=== PATIENT | male | born 1995 | race Two or more races ===

== ENCOUNTER 2017-01-14 09:22 | Emergency (ER) | payer OTHER ==
[~2017-01-14] VITALS: Ht 180.3 cm; Wt 78.9 kg
[2017-01-14] MEDS ORDERED: NKM (09:30)
[2017-01-14 09:37] VITALS: BP 115/90
[2017-01-14 10:08] LABS: EOSINOPHILS % (AUTO) 2.8 % (0.0-3.0); LYMPHOCYTES % (AUTO) 27.7 % (20.0-45.0); MEAN CORPUSCULAR HEMOGLOBIN 30.8 PG (27.0-31.0); MEAN CORPUSCULAR HGB CONC 33.1 G/DL (32.0-36.0); MEAN CORPUSCULAR VOLUME 93 FL (80-99); MEAN PLATELET VOLUME 8.3 FL (6.5-10.1); MONOCYTES % (AUTO) 5.9 % (1.0-10.0); NEUTROPHILS % (AUTO) 62.5 % (45.0-75.0); PLATELET COUNT 150 K/UL (150-450); RED BLOOD COUNT 5.24 M/UL (4.70-6.10); RED CELL DISTRIBUTION WIDTH 11.8 % (11.6-14.8); WHITE BLOOD COUNT 6.5 K/UL (4.8-10.8)
[2017-01-14 10:22] LABS: TROPONIN I < 0.30 ng/mL (<=0.30)
[2017-01-14 10:23] LABS: ALANINE AMINOTRANSFERASE 15 U/L (3-41); ALBUMIN/GLOBULIN RATIO 1.8 (1.0-2.7); ANION GAP 12 (5-15); ASPARTATE AMINO TRANSFERASE 18 U/L (5-40); CALCIUM 9.7 mg/dL (8.6-10.2); CARBON DIOXIDE 27 mEQ/L (20-30); CHLORIDE 101 mEQ/L (98-107); CREATININE 0.7 mg/dL (0.7-1.2); GLOMERULAR FILTRATION RATE > 60 mL/min (>60); HEMOLYSIS 7; POTASSIUM 4.1 mEQ/L (3.4-4.9); SODIUM 140 mEQ/L (135-145); TOTAL PROTEIN 7.3 g/dL (6.6-8.7)
[2017-01-14] MEDS ORDERED: PRILOSEC10 M1 ORAL (10:25)
[2017-01-14 10:35] VITALS: BP 115/80
--- NOTE | 2017-01-14 12:41 | Diagnostic Imaging Report ---
Indication: Chest pain Technique: One view of the chest Comparison: none Findings: Lungs and pleural spaces are clear. Heart size is normal. Impression: No acute process
--- NOTE | 2017-01-16 07:17 | Emergency Room Report ---
History of Present Illness General Chief Complaint: Chest Pain Source: Patient Present Illness HPI Patient is a 21-year-old male who presented after increased chest pain. Patient denies past medical history. He states that he began having some painful sensation to the upper portion of his chest. He denied any fever or cough. Patient reported having some nausea. The pain was unchanged by deep breath. He was improved with supine position. Patient denies any leg pain or swelling. He denies any recent trauma Allergies: Coded Allergies: No Known Allergies (Unverified , 01/14/17) Patient History Past Medical History: see triage record Reviewed Nursing Documentation: PMH: Agreed, PSxH: Agreed Nursing Documentation-PMH Past Medical History: No Stated History Review of Systems All Other Systems: negative except mentioned in HPI Physical Exam Vital Signs Date Time Temp Pulse Resp B/P (MAP) Pulse Ox O2 Delivery O2 Flow Rate FiO2 01/14/17 09:26 98.4 78 16 132/76 97 Room Air 01/14/17 09:37 100 Sp02 EP Interpretation: reviewed, normal General Appearance: normal inspection, well appearing, no apparent distress, alert, GCS 15, non-toxic Head: atraumatic ENT: normal ENT inspection, hearing grossly normal, normal voice Neck: normal inspection, full range of motion, supple, no bony tend Respiratory: normal inspection, lungs clear, normal breath sounds, no respiratory distress, no retraction, no wheezing Cardiovascular #1: regular rate, rhythm, no edema Gastrointestinal: normal inspection, normal bowel sounds, non tender, soft, no guarding, no hernia Genitourinary: no CVA tenderness Musculoskeletal: normal inspection, back normal, normal range of motion Neurologic: normal inspection, alert, responsive, speech normal Psychiatric: normal inspection, judgement/insight normal, mood/affect normal Skin: normal inspection, normal color, no rash Medical Decision Making Diagnostic Impression: Primary Impression: Nonspecific chest pain ER Course Patient presented for chest pain. Differential diagnosis included but was not limited to acute coronary syndrome, pulmonary embolism, pneumonia, aortic dissection, shingles, pneumothorax, aortic dissection, esophageal rupture, pericarditis. Because of complexity of patient's case laboratory testing and imaging studies were ordered. EKG interpreted by me showed normal sinus rhythm without acute ST or QT changes. Patient was advised to take ibuprofen. Chest x -ray one view interpreted by me showed normal cardiac size without evident lung infiltrate. The patient did not show any evidence of pericardial effusion on bedside ultrasound . The patient is advised to follow up with primary care doctor in 1-2 days. Patient is advised to return if any worsening condition or if any changes in status that are concerning. Labs Test 01/14/17 09:50 White Blood Count 6.5 K/UL (4.8-10.8) Red Blood Count 5.24 M/UL (4.70-6.10) Hemoglobin 16.1 G/DL (14.2-18.0) Hematocrit 48.7 % (42.0-52.0) Mean Corpuscular Volume 93 FL (80-99) Mean Corpuscular Hemoglobin 30.8 PG (27.0-31.0) Mean Corpuscular Hemoglobin Concent 33.1 G/DL (32.0-36.0) Red Cell Distribution Width 11.8 % (11.6-14.8) Platelet Count 150 K/UL (150-450) Mean Platelet Volume 8.3 FL (6.5-10.1) Neutrophils (%) (Auto) 62.5 % (45.0-75.0) Lymphocytes (%) (Auto) 27.7 % (20.0-45.0) Monocytes (%) (Auto) 5.9 % (1.0-10.0) Eosinophils (%) (Auto) 2.8 % (0.0-3.0) Basophils (%) (Auto) 1.0 % (0.0-2.0) D-Dimer 166 ng/mL (<500) Sodium Level 140 mEQ/L (135-145) Potassium Level 4.1 mEQ/L (3.4-4.9) Chloride Level 101 mEQ/L (98-107) Carbon Dioxide Level 27 mEQ/L (20-30) Anion Gap 12 (5-15) Blood Urea Nitrogen 11 mg/dL (7-23) Creatinine 0.7 mg/dL (0.7-1.2) Estimat Glomerular Filtration Rate > 60 mL/min (>60) Glucose Level 111 mg/dL (74-106) Calcium Level 9.7 mg/dL (8.6-10.2) Total Bilirubin 0.3 mg/dL (0.0-1.2) Aspartate Amino Transf (AST/SGOT) 18 U/L (5-40) Alanine Aminotransferase (ALT/SGPT) 15 U/L (3-41) Alkaline Phosphatase 66 U/L (40-129) Troponin I < 0.30 ng/mL (<=0.30) Total Protein 7.3 g/dL (6.6-8.7) Albumin 4.7 g/dL (3.5-5.2) Globulin 2.6 g/dL Albumin/Globulin Ratio 1.8 (1.0-2.7) Last Vital Signs Date Time Temp Pulse Resp B/P (MAP) Pulse Ox O2 Delivery O2 Flow Rate FiO2 01/14/17 10:35 89 19 115/80 100 Room Air 01/14/17 10:35 97.4 01/14/17 09:37 100 Status: improved Disposition: HOME, SELF-CARE Condition: Stable Scripts Omeprazole Magnesium (PRILOSEC) 10 Mg Suspdr.pkt 10 MG ORAL DAILY, #30 PACKET Prov: Shamir Mckeon 01/14/17 Referrals: [employer] [facility],REFERRIN (PCP) Patient Instructions: Nonspecific Chest Pain Shamir Mckeon Jan 16, 2017 07:17
== END 2017-01-14 11:40 | disposition home or self-care (01) ==
LOC: EMR 10:37
DX: R07.9 Chest pain, unspecified (principal)
CPT/HCPCS: 36415; 71010; 80053; 84484; 85025; 85379; 99283

== ENCOUNTER 2017-09-19 22:54 | Emergency (ER) | payer OTHER ==
[~2017-09-19] VITALS: Ht 170.2 cm; Wt 78.5 kg
[~2017-09-19 22:54] MED LIST: NKM; PRILOSEC10 M1 ORAL
--- NOTE | 2017-09-19 23:22 | Emergency Room Report ---
History of Present Illness General Chief Complaint: Palpitations Source: Patient, Family Member Present Illness HPI Is a 22-year-old male with no past medical history. He presents with chief point of chest pain or palpitation. He was here last year for similar complaint. He has intermittent palpitation. Last night he woke up and fell his heart was beating fast area lasted for a few minutes. Better when he rests. No nausea no vomiting. He came in today because he had some slight chest pain. His family member took his blood pressure and is is 146/98. He was concerned so there was brought in to be evaluated. Patient still fill he has mild palpitation now. No fever or chills. No exertional component. No diaphoresis. No short of breath. Allergies: Coded Allergies: No Known Allergies (Unverified , 01/14/17) Patient History Past Medical History: none, see triage record, old chart reviewed Past Surgical History: none Pertinent Family History: none Social History: Denies: smoking Immunizations: other Reviewed Nursing Documentation: PMH: Agreed; PSxH: Agreed Nursing Documentation-PMH Past Medical History: No History, Except For Hx Gastrointestinal Problems: Yes - Acid Reflux Review of Systems Eye: Denies: eye pain, blurred vision ENT: Denies: ear pain, nose congestion, throat swelling Respiratory: Denies: cough, shortness of breath Cardiovascular: Reports: chest pain, palpitations Gastrointestinal: Denies: abdominal pain, diarrhea, nausea, vomiting Musculoskeletal: Denies: back pain, joint pain Skin: Denies: rash Neurological: Denies: headache, numbness Endocrine: Denies: increased thirst, increased urine Hematologic/Lymphatic: Denies: easy bruising All Other Systems: negative except mentioned in HPI Physical Exam Vital Signs Date Time Temp Pulse Resp B/P (MAP) Pulse Ox O2 Delivery O2 Flow Rate FiO2 09/19/17 23:02 98.4 85 18 122/78 94 Room Air 98.4 vitals normal Sp02 EP Interpretation: reviewed, normal General Appearance: well appearing, no apparent distress, alert Head: normocephalic, atraumatic Eyes: bilateral eye PERRL, bilateral eye EOMI ENT: hearing grossly normal, normal pharynx Neck: full range of motion, supple, no meningismus Respiratory: chest non-tender, lungs clear, normal breath sounds Cardiovascular #1: regular rate, rhythm, no murmur Gastrointestinal: normal bowel sounds, non tender, no mass, no organomegaly, no bruit, non-distended Musculoskeletal: back normal, gait/station normal, normal range of motion Psychiatric: mood/affect normal Skin: warm/dry Medical Decision Making Diagnostic Impression: Primary Impression: Nonspecific chest pain Additional Impression: Palpitations ER Course Pt with nonspecific chest pain and palpation. No evidence of ACS, PE, dissection to name a few. No obvious arrhythmia here. No evidence of Karen- Parkinson-White syndrome. Recommend outpatient follow-up with a transcribing machine operator for Holter monitor. EKG Diagnostic Results Rate: normal Rhythm: NSR ST Segments: no acute changes Rhythm Strip Diag. Results Rhythm Strip Time: 23:22 EP Interpretation: yes Rate: 81 Rhythm: NSR, no PVC's, no ectopy Last Vital Signs Date Time Temp Pulse Resp B/P (MAP) Pulse Ox O2 Delivery O2 Flow Rate FiO2 09/19/17 23:02 98.4 85 18 122/78 94 Room Air 98.4 Status: improved Disposition: HOME, SELF-CARE Condition: Stable Patient Instructions: Palpitations Additional Instructions: Follow-up your doctor in 7 days. You will benefit from a referral to see a transcribing machine operator for a Holter monitor. Return if symptom worsen. DEE APODACA M.D. September 19, 2017 23:22
[2017-09-19 23:38] VITALS: BP_SYST 120; BP_SYST 125; BP_DIAS 70; BP_DIAS 77
== END 2017-09-19 23:35 | disposition home or self-care (01) ==
LOC: EMR 23:10
DX: R07.89 Other chest pain (principal); R00.2 Palpitations; K21.9 Gastro-esophageal reflux disease without esophagitis
CPT/HCPCS: 93005; 99283